=== PATIENT | female | born 1995 | race African-American/Black ===

== ENCOUNTER 2025-04-06 15:47 | Observation (INO) | payer SELFPAY ==
[2025-04-06] VITALS (21 sets, daily range): BP systolic 121–156; BP diastolic 55–125; PULSE 53–113; RESP 16–20; TEMP 36.4–36.7; O2SAT 99–100
--- NOTE | ~2025-04-06 | US_ITS ---
EXAMINATION: US OB <=14 wk fetus w TV, 04/06/2025 17:45 ETHYLBENZENE CRACKING SUPERVISOR HISTORY: pain, , r/o ectopic Comparison: None Technique: Guzman-scale and color Doppler images were obtained. Findings: The uterus is anteverted measuring 9.4 x 5.9 x 6.9 cm. Endometrium 1.8 cm. Right ovary 3.8 x 2 x 2.1 cm, no adnexal mass, normal flow. Left ovary 2.9 x 2.5 x 2.3 cm, adjacent to the left ovary there is a gestational sac measuring 1.3 cm with questionable pole and yolk sac identified. Minimal simple appearing free fluid noted. IMPRESSION: Findings are concerning for ectopic detailed above. Results discussed with the referring clinician immediately Reviewed, dictated and finalized at location P. LBENZENE CRACKING SUPERVISOR
--- NOTE | 2025-04-06 16:10 | ED_ITS ---
HPI - Abdominal Pain General Chief Complaint: Abdominal Pain Stated Complaint: +preg test, c/o abd cramps Time Seen by Provider: 04/06/25 15:53 Source: patient Mode of arrival: ambulatory Limitations: no limitations History of Present Illness HPI narrative: This is a 29-year-old female that presents to the emergency department for lower abdominal cramping. Reports she had a positive test today which prompted her to be seen as she had a miscarriage before. Denies dysuria, vaginal bleeding. Related Data Allergies Allergy/AdvReac Type Severity Reaction Status Date / Time No Known Allergies Allergy Verified 04/06/25 15:59 Review of Systems 2 Review of Systems: All systems reviewed & are unremarkable except as noted in HPI and below PMFSH Past Medical History Medical History (Updated 04/06/25 @ 20:37 by Lucero Holder CRNA) Overweight (BMI 25.0-29.9) Marijuana smoker Exam 2 Narrative: GENERAL: Well-appearing, well-nourished, and in no acute distress. HEAD: Normocephalic, atraumatic. EYES: EOMI. CHEST: Clear to auscultation. No respiratory distress. No wheezes rales or rhonchi HEART: Regular rate and rhythm. No murmur heard. Normal peripheral pulses. ABDOMEN: Soft, nontender, nondistended, normal active bowel sounds. EXTREMITIES: Normal range of motion. No edema. SKIN: Warm, dry, no rash. NEURO: No focal deficits. Alert and oriented x3. PSYCH: Normal mood and affect Course Consultations Consultation #1: Case was discussed with Dr. Andre, patient will be taken to the OR Date: 04/06/25 Vital Signs Vital signs: Vital Signs Pulse Oximetry 100 04/06/25 15:53 Temperature 98.1 F 04/06/25 15:56 Pulse Rate 72 04/06/25 18:53 Respiratory Rate 16 04/06/25 18:53 Blood Pressure 126/76 04/06/25 18:53 Pulse Oximetry 100 04/06/25 18:53 Oxygen Delivery Room Air 04/06/25 15:56 MDM - Abdominal Pain MDM Narrative Medical decision making narrative: Patient presents to the emergency department for abdominal cramping with positive test. She is afebrile and nontoxic appearing. Her vitals are stable. No bleeding at this time. CBC and metabolic panel without concerning findings. Urine with white blood cells, also many squamous epithelial cells. Patient does not have any urinary symptoms at this time. Quantitative beta HCG is 15,747. Ultrasound is concerning for ectopic. Case was discussed with Dr. Andre, patient will be taken to the OR Differential Diagnosis Differential diagnosis: Likely other (Miscarriage, threatened miscarriage, ectopic ) Lab Data Attestation: I reviewed the patient's lab results. 04/06/25 16:09 04/06/25 16:09 Labs: Lab Results 04/06/25 04/06/25 Range/Units 16:09 19:40 WBC 7.6 (4.5-10.0) K/mm3 RBC 4.79 (4.2-5.4) M/mm3 Hgb 12.9 (12.0-15.0) g/dL Hct 39.2 (37.0-47.0) % MCV 81.8 (80-100) fl MCH 26.9 (26-34) pg MCHC 32.9 (32-36) g/dl RDW 13.8 (11.5-14.5) % Plt Count 367 (150-375) k/mm3 MPV 9.3 (7.4-10.4) fl Immature Gran % (Auto) 0.3 (0-0.5) % Neut % (Auto) 63.6 (45.5-73.1) % Lymph % (Auto) 26.5 (18.3-44.2) % [place] % (Auto) 8.2 (2.6-8.5) % Eos % (Auto) 1.1 (0-4.4) % Baso % (Auto) 0.3 (0.2-1.2) % Lymph # (Auto) 2.01 (0.9-3.2) K/mm3 [place] # (Auto) 0.6 (0.1-0.6) K/mm3 Eos # (Auto) 0.1 (0-0.3) K/mm3 Baso # (Auto) 0.0 (0.0-0.1) K/mm3 Abs Immat Gran (auto) 0.02 (0.00-0.031) K/mm3 Absolute Neuts (auto) 4.8 (1.3-6.7) K/mm3 Absolute Nucleated RBC 0.000 (0.0-0.012) K/mm3 Nucleated RBC % 0.0 (0.0-0.2) % PT 13.6 (11.1-14.7) Seconds INR 1.0 APTT 28.7 (22.3-36.8) Seconds Sodium 135 L (137-145) mmol/L Potassium 3.4 (3.4-5.0) mmol/L Chloride 105 (98-107) mmol/L Carbon Dioxide 21 L (22-30) mmol/L Anion Gap 9 (4-12) mmol/L BUN 8 (7-17) mg/dL Creatinine 0.81 (0.7-1.0) mg/dL Estim Creat Clear Calc 86 ml/min Estimated GFR > 60 (59 - ) Glucose 90 (65-110) mg/dL Calcium 8.9 (8.4-10.2) mg/dL Total Bilirubin 0.7 (0.2-1.3) mg/dL AST 35 (14-36) U/L ALT 15 (6-35) U/L Alkaline Phosphatase 54 (38-126) U/L Total Protein 8.4 H (6.3-8.2) g/dL Albumin 4.6 (3.5-5.1) g/dL Lipase 60 (23-300) U/L Beta HCG, Quant 12782.00 mIU/ML Urine Color Yellow (Yellow) Urine Appearance Cloudy H (Clear) Urine pH 5.5 (5.0-9.0) Ur Specific [place] 1.023 (1.001-1.035) Urine Protein Negative (Negative) mg/dL Urine Glucose (UA) Negative (Negative) mg/dL Urine Ketones Trace H (Negative) mg/dL Ur Blood (Man) Negative (Negative) Urine Nitrate Negative (Negative) Urine Bilirubin Negative (Negative) Urine Urobilinogen 1.0 (<2.0) mg/dL Add Ur Microanalysis Reviewed Leukocyte Esterase Rfl 2+ H (Negative) HAZEL/UL Urine RBC 0-2 (0-2) /hpf Urine WBC 21-50 H (0-3) /hpf Ur Squamous Epith Cells Many H (Few) /hpf Urine Bacteria 2+ H /hpf Urine Casts 0-2 Blood Type O Positive Antibody Screen Pending Imaging Data Radiologist's impression: ITS Impressions Obstetrics Ultrasound 04/06/25 19:01 IMPRESSION: Findings are concerning for ectopic detailed above. Results discussed with the referring clinician immediately Critical Care Time Critical Care Time Critical Care Time: Yes Total Critical Care Time: 35 Discharge Plan Discharge Clinical Impression: Ectopic without intrauterine Qualifiers: Location of ectopic : unspecified location Qualified Code(s): O00.90 - Unspecified ectopic without intrauterine Patient Disposition: Still a Patient Condition: Serious Patient Language: Macedonian Follow-up/Referrals: PHYSICIAN,PIVOT MAKER [Primary Care Provider, Internal Medicine]
[2025-04-06 16:17] LABS: Hematocrit 39.2 % (37.0-47.0); Hemoglobin 12.9 g/dL (12.0-15.0); Immature Granulocyte Percent A 0.3 % (0-0.5); Lymphocytes Absolute Auto 2.01 K/mm3 (0.9-3.2); Mean Corpuscular HGB Conc 32.9 g/dl (32-36); Mean Corpuscular Hemoglobin 26.9 pg (26-34); Mean Corpuscular Volume 81.8 fl (80-100); Nucleated Red Blood Cells Absolute Auto 0.000 K/mm3 (0.0-0.012); Nucleated Red Blood Cells Perc 0.0 % (0.0-0.2); Platelet Count Result 367 k/mm3 (150-375); Red Blood Count 4.79 M/mm3 (4.2-5.4); White Blood Count 7.6 K/mm3 (4.5-10.0)
[2025-04-06 16:28] LABS: Add Urine Microscopic? YES; Appearance Urine Cloudy (Clear); Glucose Urine UA Negative (Negative); Leukocyte Esterase Ur 2+ LEU/UL (Negative); Need Manual Microscopic Reviewed; Nitrate Urine Negative (Negative); Non Pathogenic Casts 0-2; Specific Grav Ur 1.023 (1.001-1.035)
[2025-04-06 16:43] LABS: Alanine Aminotransferase 15 U/L (6-35); Albumin Level 4.6 g/dL (3.5-5.1); Alkaline Phosphatase 54 U/L (38-126); Anion Gap 9 mmol/L (4-12); Aspartate Amino Transferase 35 U/L (14-36); Bilirubin,Total 0.7 mg/dL (0.2-1.3); Blood Urea Nitrogen 8 mg/dL (7-17); Calcium 8.9 mg/dL (8.4-10.2); Carbon Dioxide 21 mmol/L (22-30); Chloride 105 mmol/L (98-107); Estimated CRCL calculation 86 ml/min; Estimated Glomerular Filt Rate > 60; Glucose 90 mg/dL (65-110); Lipase 60 U/L (23-300); Potassium 3.4 mmol/L (3.4-5.0); Sodium 135 mmol/L (137-145); Total Protein 8.4 g/dL (6.3-8.2)
[2025-04-06] MEDS: ONDANSETRON INJ 4 MG/2 ML VIAL IV PUSH (19:54)
[2025-04-06] MEDS: MORPHINE SULFATE (*CRX) 4 MG/ML INJ IV PUSH (19:54)
[2025-04-06 20:06] LABS: INR 1.0; Prothrombin Time 13.6 Seconds (11.1-14.7)
[2025-04-06 20:07] LABS: Partial Thromboplastin Time 28.7 Seconds (22.3-36.8)
--- NOTE | 2025-04-06 20:29 | PM.IMHP ---
H&P: HPI History of Present Illness Date/Time: 04/06/25 20:29 29-year-old 7 para 4024 female presents emergency room with abdominal cramping and minimal bleeding. Found on ultrasound to have left tubal . Has a history of 4 vaginal deliveries, 1 elective termination, and prior right ectopic with salpingectomy. Denies any significant prior /surgical history. Chief Complaint: Review of Systems Review of Systems: All systems reviewed & are unremarkable except as noted in HPI and below Meds Home Medications and Allergies Allergies Allergy/AdvReac Type Severity Reaction Status Date / Time No Known Allergies Allergy Verified 04/06/25 15:59 Vital Signs Vital Signs - 24 hr 04/06/25 15:53 04/06/25 15:55 04/06/25 15:56 Temperature 98.1 F Pulse Rate 77 Respiratory Rate 16 Blood Pressure 136/69 136/69 Pulse Oximetry 100 100 100 Oxygen Delivery Room Air 04/06/25 16:00 04/06/25 16:15 04/06/25 16:17 Temperature Pulse Rate Respiratory Rate Blood Pressure 121/108 H Pulse Oximetry 100 100 100 Oxygen Delivery 04/06/25 16:30 04/06/25 16:33 04/06/25 16:45 Temperature Pulse Rate Respiratory Rate Blood Pressure Pulse Oximetry 100 100 100 Oxygen Delivery 04/06/25 16:47 04/06/25 18:53 Temperature Pulse Rate 72 Respiratory Rate 16 Blood Pressure 156/125 H 126/76 Pulse Oximetry 100 100 Oxygen Delivery Exam Const: General: cooperative, healthy appearing and anxious Resp: Effort & Inspection: normal respiratory effort Auscultation: clear to auscultation bilaterally Cardio: Rate: regular rate Rhythm: regular rhythm GI: Inspection: normal to inspection Auscultation: normal bowel sounds : External Female Exam: normal external appearance Speculum Exam - Vagina: normal appearance of the vagina Speculum Exam - Cervix: normal appearance of the cervix Bimanual exam- vagina & uterus: enlarged ( Eight week size) Bimanual Exam- Adnexa, other: tender on the left H&P: Results Labs Labs: Short CBC 04/06/25 Range/Units 16:09 WBC 7.6 (4.5-10.0) K/mm3 Hgb 12.9 (12.0-15.0) g/dL Hct 39.2 (37.0-47.0) % Plt Count 367 (150-375) k/mm3 BMP 04/06/25 16:09 Sodium 135 L Potassium 3.4 Chloride 105 Carbon Dioxide 21 L BUN 8 Creatinine 0.81 Glucose 90 Calcium 8.9 Liver Function 04/06/25 Range/Units 16:09 Total Bilirubin 0.7 (0.2-1.3) mg/dL AST 35 (14-36) U/L ALT 15 (6-35) U/L Alkaline Phosphatase 54 (38-126) U/L Albumin 4.6 (3.5-5.1) g/dL Urine 04/06/25 Range/Units 16:09 Urine Color Yellow (Yellow) Urine Appearance Cloudy H (Clear) Urine pH 5.5 (5.0-9.0) Ur Specific [place] 1.023 (1.001-1.035) Urine Protein Negative (Negative) mg/dL Urine Glucose (UA) Negative (Negative) mg/dL Assessment and Plan Assessment and plan (1) Ectopic without intrauterine : Code(s): O00.90 - Unspecified ectopic without intrauterine Status: Acute (2) History of ectopic : Code(s): Z87.59 - Personal history of other complications of , childbirth and the puerperium Status: Acute Plan proceed with laparoscopy, left salpingectomy, possible left salpingo-oophorectomy. Expected to be a complete procedure laparoscopic and discharge home later tonight.
--- NOTE | 2025-04-06 20:34 | WPDHPUPDATE1 ---
History and Physical Update Update Date/Time: 04/06/25 20:34 History and Physical has been reviewed, including an updated exam of the patient. There are NO changes in the patient's condition. Risks, benefits, and alternatives have been discussed and questions answered. Patient agrees to proceed with procedure.
--- NOTE | 2025-04-06 20:36 | P.PNAN_ITS ---
Anes - Initial Pre Proc Eval Procedure: Operation Date: 04/06/25 20:05 Proposed Procedures p Diagnostic Laparoscopy Salpingectomy - Valente Andre MD Date/Time: 04/06/25 20:36 Pre Op Diagnosis: +preg test, c/o abd cramps Patient Data Age: 29 Gender: F Height: 1.7 m Weight: 75.9 kg Last Vital Signs Temp 36.7 C 04/06/25 15:56 Pulse 72 04/06/25 18:53 Resp 16 04/06/25 18:53 BP 126/76 04/06/25 18:53 Pulse Ox 100 04/06/25 18:53 O2 Del Method Room Air 04/06/25 15:56 Allergies Allergy/AdvReac Type Severity Reaction Status Date / Time No Known Allergies Allergy Verified 04/06/25 15:59 Laboratory Tests 04/06/25 04/06/25 16:09 19:40 WBC 7.6 K/mm3 (4.5-10.0) RBC 4.79 M/mm3 (4.2-5.4) Hgb 12.9 g/dL (12.0-15.0) Hct 39.2 % (37.0-47.0) MCV 81.8 fl (80-100) MCH 26.9 pg (26-34) MCHC 32.9 g/dl (32-36) RDW 13.8 % (11.5-14.5) Plt Count 367 k/mm3 (150-375) MPV 9.3 fl (7.4-10.4) Immature Gran % (Auto) 0.3 % (0-0.5) Neut % (Auto) 63.6 % (45.5-73.1) Lymph % (Auto) 26.5 % (18.3-44.2) [place] % (Auto) 8.2 % (2.6-8.5) Eos % (Auto) 1.1 % (0-4.4) Baso % (Auto) 0.3 % (0.2-1.2) Lymph # (Auto) 2.01 K/mm3 (0.9-3.2) [place] # (Auto) 0.6 K/mm3 (0.1-0.6) Eos # (Auto) 0.1 K/mm3 (0-0.3) Baso # (Auto) 0.0 K/mm3 (0.0-0.1) Abs Immat Gran (auto) 0.02 K/mm3 (0.00-0.031) Absolute Neuts (auto) 4.8 K/mm3 (1.3-6.7) Absolute Nucleated RBC 0.000 K/mm3 (0.0-0.012) Nucleated RBC % 0.0 % (0.0-0.2) PT 13.6 Seconds (11.1-14.7) INR 1.0 APTT 28.7 Seconds (22.3-36.8) Sodium 135 L mmol/L (137-145) Potassium 3.4 mmol/L (3.4-5.0) Chloride 105 mmol/L (98-107) Carbon Dioxide 21 L mmol/L (22-30) Anion Gap 9 mmol/L (4-12) BUN 8 mg/dL (7-17) Creatinine 0.81 mg/dL (0.7-1.0) Estim Creat Clear Calc 86 ml/min Estimated GFR > 60 (59 - ) Glucose 90 mg/dL (65-110) Calcium 8.9 mg/dL (8.4-10.2) Total Bilirubin 0.7 mg/dL (0.2-1.3) AST 35 U/L (14-36) ALT 15 U/L (6-35) Alkaline Phosphatase 54 U/L (38-126) Total Protein 8.4 H g/dL (6.3-8.2) Albumin 4.6 g/dL (3.5-5.1) Lipase 60 U/L (23-300) Beta HCG, Quant 03224.00 mIU/ML Urine Color Yellow (Yellow) Urine Appearance Cloudy H (Clear) Urine pH 5.5 (5.0-9.0) Ur Specific [place] 1.023 (1.001-1.035) Urine Protein Negative mg/dL (Negative) Urine Glucose (UA) Negative mg/dL (Negative) Urine Ketones Trace H mg/dL (Negative) Ur Blood (Man) Negative (Negative) Urine Nitrate Negative (Negative) Urine Bilirubin Negative (Negative) Urine Urobilinogen 1.0 mg/dL (<2.0) Add Ur Microanalysis Reviewed Leukocyte Esterase Rfl 2+ H HAZEL/UL (Negative) Urine RBC 0-2 /hpf (0-2) Urine WBC 21-50 H /hpf (0-3) Ur Squamous Epith Cells Many H /hpf (Few) Urine Bacteria 2+ H /hpf Urine Casts 0-2 Blood Type O Positive Antibody Screen Pending Patient hx anesthesia problems: none Family hx anesthesia problems: none Results Review: All pre-operative results and documents have been reviewed as part of the pre- operative evaluation. [facility] Past Medical History Medical History (Updated 04/06/25 @ 20:37 by Lucero Holder CRNA) Overweight (BMI 25.0-29.9) Marijuana smoker Anes - Eval Final PreProcedure Day of Procedure 04/06/25 20:36 Patient weight: overweight Heart: regular rate and rhythm Lungs: clear to auscultation Airway: Mallampati scale class II Neurological: alert and oriented Last oral intake: >/= 8 hours ASA classification: II Emergent: yes Anesthetic plan: proceed Anesthesia type and monitoring: general Results Review: All pre-operative results and documents have been reviewed as part of the pre- operative evaluation. Informed Consent: The patient's anesthetic plan and its attendant risks and benefits were d iscussed with the patient/family/POA. Questions were solicited and answers provided to the satisfaction of the patient/family/POA.
--- NOTE | 2025-04-06 21:12 | S_PTH ---
PATIENT: Kendy Cole LOC: [id number] U#:[id number] AGE/SX: 29/F ROOM: 311 RE04/07/[address]: Valente Andre MD : [id number] BED: 01 DIS: 04/07/2025 SPEC #: [id number] RECD: 04/08/25 07:40 STATUS: HARRY REQ #: [id number] DEIDRA: 04/06/25 21:[address]: Valente Andre DEPT: [facility] Surgical RECD BY: Ashley Sales ENTERED: 04/08/25 07:41 SP TYPE: Surgical OTHR DR: Jaime Beltran MD SECTION LEADER PHYSICIAN Tissues: A - Fallopian Tube Single Procedures: Gross and Microscopic Level 2 Hematoxylin and Eosin Stain
--- NOTE | 2025-04-06 21:21 | W.PM.PROC2 ---
Procedure Note - Detailed Date of Procedure 04/06/25 Pre-op Diagnosis +preg test, c/o abd cramps Post-op Diagnosis Same Procedure Performed 1. Laparoscopy 2. Left salpingectomy 3. Evacuation of hematoma Surgeon Valente Andre MD Anesthesia General Findings left ectopic . Right tube surgically absent. Uterus and ovaries without abnormality. 100cc clot in posterior cul-de-sac Description of Procedure patient prepped and draped in usual manner for this procedure. Cervical instruments placed for uterine mobility throughout the case. Abdominal trocar sites were placed under direct visualization. Patient was placed in Trendelenburg position with findings as noted above. Using the LigaSure the left medial salpinx was cauterized and cut and this left tube and ectopic was removed through the left lower quadrant 11mm incision. Irrigation was undertaken with all the old blood and clots removed. Right tube was surgically absent. The left lower trocar fascia was approximated using 0 Vicryl in a [id number] suture. Subcutaneous tissue was approximated 4-0 Monocryl the patient was sent to the recovery room in stable condition. Estimated Blood Loss 5 Drains No Packing No Pathology Yes Complications No immediate complications Condition Stable Disposition PACU [facility] Billing Surgery - Charge Forward: Surgery Billing
[2025-04-06] MEDS: fentaNYL CITRATE INJ (*CRX) 100 MCG/2 ML VIAL 50 MCG IV PUSH ×4 (21:40→22:35)
[2025-04-06] MEDS: oxyCODONE HCL (*CRX) 5 MG TAB IR PO (22:52)
[2025-04-07 00:16] VITALS: BP 123/68; PULSE 109
[2025-04-07 00:55] VITALS: BP 119/64; PULSE 91; RESP 18; TEMP 36.6; O2SAT 100
[2025-04-07 01:05] VITALS: BP 119/61; PULSE 76; RESP 16; TEMP 36.2; O2SAT 99
[2025-04-07 01:23] VITALS: BMI 27.0
--- NOTE | 2025-04-07 01:27 | ADMGEN ---
This patient, Kendy Cole, was admitted to 3 Med Surg Room 311-01. Patient/family oriented to hospital policies and general routines including ID bracelet, bed and alarms, visiting hours, pain management, procedures, bathroom and other care routines, personal items, smoking policy, room service/diet, and visiting hours. Information on how to activate the Rapid Response Team has been discussed. Patient/Family are encouraged to report perceived risks to care and to ask questions if they do not understand what they are told or what they should do.
[2025-04-07 01:35] VITALS: BP 140/76; PULSE 88; RESP 18; TEMP 36.4; O2SAT 100
[2025-04-07 02:35] VITALS: BP 113/67; PULSE 79; RESP 16; TEMP 36.4; O2SAT 100
[2025-04-07] MEDS: oxyCODONE HCL (*CRX) 5 MG TAB IR PO ×3 (02:55→10:33)
[2025-04-07 04:50] VITALS: BP 105/53; PULSE 76; RESP 16; TEMP 36.2; O2SAT 100
[2025-04-08 11:49] LABS: BEDSIDEPREGUCG Positive (Negative)
--- NOTE | 2025-04-09 11:23 | P.DS_ITS ---
DS: Admitting Diagnosis Discharge Date 04/07/25 Admitting Diagnosis ectopic DS: Discharge Diagnosis Discharge Diagnosis (1) Ectopic without intrauterine : Qualifiers: Location of ectopic : unspecified location Qualified Code(s): O00.90 - Unspecified ectopic without intrauterine Code(s): O00.90 - Unspecified ectopic without intrauterine Status: Acute OB - DS: Summary OB Procedures : None OB Procedures Intrapartum: Other ( ectopic ) OB Procedures: : None Peripartum Data Procedures: Procedures Operation Date: 04/06/25 20:05 Actual Procedure Side Surgeon p Laparoscopy Left Salpingectomy, evacuation of hematoma Left Valente Andre MD Time Spent with Patient Time attestation: Total time spent providing and/or coordinating discharge services: DS: Data Data Completed and Pending Pending studies at discharge: Pending at discharge 04/06/25 21:12 Surgical [PTH] Routine Labs on day of discharge: Labs from last 24 hours 04/06/25 16:08 POC Urine HCG, Qual Positive Discharge Plan Discharge Consulting providers: Jaime Beltran; Ivan Zendejas; Lucero Holder; Joni Torres Discharging Clinician: Valente Andre Patient Disposition: Home Activity: may shower Diet: regular Wound Care Instructions: incision open to air Discharge Instructions: Laparoscopic surgery Discharge Instructions (Tubal, Ovarian cyst removal, Endometriosis, etc) - Okay to shower in 24 hours, avoid baths/pools until you see your Doctor at your post-op visit - Nothing in the vagina for 4-6 weeks (no tampons or intercourse) - Limit lifting to less than 10-15 pounds and strenuous exercise for 2-4 weeks Incision Care - If you have a dressing, remove when instructed: ?- [place]/clear dressings should be removed by day 7 unless it get wet/starts peeling off ? - White tape/gauze dressings should be removed/exchanged daily - If no dressing: ? - Keep your incision open to air ? - Do not place any ointments/creams/solutions unless specified by your Doctor ? - It is okay to shower daily and let soap/water run over your incision, do not scrub your incision ? - Keep your incision clean and dry, okay to place gauze/paper in your skin fold to keep sweat out - Dermabond (purple skin glue) may start peeling around 10-14 days, okay to remove after 14 days - If you see a stitch (string), do not pull/tug on it, leave it alone Encouraged Activities/OTC Medications that are safe (Unless your doctor specifically told you not to take/do them, and you're not allergic) - Colace 1 capsule twice daily or Miralax daily to prevent constipation - Tylenol 1000mg every 6-8 hours as needed for pain - Ibuprofen 600mg every 6-8 hours as needed for pain - You can use heating pads or ice packs as needed if it helps with discomfort - Getting up/walking short distances multiple times daily-- we do not recommend bed rest - Stay hydrated; try to drink 64oz/ 2L daily of water, smaller meals are okay (decreased appetite is common after anesthesia) CALL YOUR DOCTOR/GO TO THE EMERGENCY ROOM IF YOU: - Are having heavy vaginal bleeding (saturating 2 Kotex pads an hour) - Cannot keep food/liquids down - Have not urinated in 6 hours or are unable to - Have not had a bowel movement in 5 days - Have a concerning rash that might be an allergic reaction - Have a fever greater than 100.4 degrees Fahrenheit - Significant pain not relieved with your prescribed medications +/- OTC meds - Significant redness, drainage, or bleeding from your incision - If you had a hysterectomy and are having abnormal vaginal discharge and/or vaginal bleeding Patient Instructions: Antibiotic Form Patient Language: Korean Stand Alone Forms: General Discharge Information Follow-up/Referrals: Valente Andre MD [Physician, CORPORATE ACCOUNTANT] - 2 Weeks PHYSICIAN,COSTING ANALYST [Primary Care Provider, Internal Medicine] Discharge Medications: New ibuprofen 600 mg tablet 600 mg PO TID PRN (Reason: pain) Qty: 30 0RF oxycodone 5 mg tablet 5 mg PO Q6H PRN (Reason: pain) Qty: 20 0RF ibuprofen 600 mg Tablet 600 mg PO Q8H PRN (Reason: Pain Rated 4-6) Qty: 30 0RF oxycodone 5 mg Tablet 5 mg PO Q4-6H Qty: 20 0RF Discontinued ibuprofen 800 mg tablet norethindrone (contraceptive) 0.35 mg tablet amoxicillin-pot clavulanate 875-125 mg tablet chlorhexidine gluconate 0.12 % mouthwash Date of admission: 04/07/25 01:08 Primary Care Provider: PHYSICIAN,COSTING ANALYST Admitting Provider: Valente Andre Attending physician on admission: Valente Andre Condition: Serious
== END 2025-04-07 12:55 | disposition home or self-care (01) ==
LOC: ANHED 04-07 01:18 → ANHSURGERY 04-07 01:18 → ANH3MEDSUR 04-07 01:19 → ANHSURGERY 04-07 07:39 → ANH3MEDSUR 04-07 07:39
PROVIDERS: Emergency Medicine; Admitting Provider Obstetrics & Gynecology; Emergency Provider Physician Assistant; Visit Provider Obstetrics & Gynecology
PROC: (CPT 49320; principal; 2025-04-06 20:05)
DX: O00.90 Unspecified ectopic pregnancy without intrauterine pregnancy (principal); Z87.59 Personal history of other complications of pregnancy, childbirth and the puerperium
CPT/HCPCS: 59151; 36415; 76801; 76817; 80053; 81001; 81025; 83690; 84702; 85025; 85610; 85730; 86850; 86900; 86901; 88302; 96374; 96375; 99285; A9270; G0378; J0330; J0616; J1100; J2003; J2250; J2270; J2405; J2704; J3010; J7030; Q9968